=== PATIENT | female | born 1945 | race African-American/Black ===

== ENCOUNTER 2024-10-05 22:22 | Inpatient (IN) | payer MEDICARE, BC ==
[~2024-10-05] VITALS: Ht 165.1 cm; Wt 77.1 kg
[~2024-10-05 22:22] MED LIST: AMLO10TA80 PO; BUPR-113 PO; LEVVL SQ; OLME40TA18 PO
[2024-10-05 22:30] VITALS: BP 131/71; PULSE 85; RESP 18; TEMP 37.11408; TEMP 37.1408; O2SAT 97
[2024-10-06] MEDS ORDERED: KETOROLAC 15MG/ML VIAL IV PRN (00:15)
[2024-10-06] MEDS ORDERED: ONDANSETRON HCL 4MG/2ML INJ IV PRN (00:15)
[2024-10-06] MEDS ORDERED: DIPHENHYDRAMINE 50MG/ML VIAL IV PRN (00:15)
[2024-10-06] MEDS ORDERED: DEXTROSE 50% WATER 50ML SYRINGE IV PRN (00:15)
[2024-10-06] MEDS ORDERED: NALOXONE HCL 0.4MG/ML 1ML VIAL IV PRN (00:15)
[2024-10-06] MEDS ORDERED: CLONIDINE 0.1MG TABLET PO PRN (00:15)
[2024-10-06] MEDS ORDERED: HYDROCODONE/ACETAMINOPHEN 5/325MG TABLET PO PRN (00:15)
[2024-10-06] MEDS: BLOOD SUGAR DIAGNOSTIC STRIP TEST SCH (05:32)
[2024-10-06] MEDS: SODIUM CHLORIDE 0.9% 3ML FLUSH IVF SCH (06:06)
[2024-10-06 08:00] VITALS: BP 122/61; PULSE 90; RESP 19; TEMP 36.61404; O2SAT 97
[2024-10-06 08:15] LABS: CHLORIDE 105 mEq/L (98-107); POTASSIUM 3.9 mEq/L (3.5-5.1); SODIUM 136 mEq/L (136-145)
[2024-10-06 08:20] LABS: CALCIUM 8.5 mg/dL (8.7-10.4); CARBON DIOXIDE 21 mEq/L (21-32)
[2024-10-06 08:25] LABS: CREATININE 0.8 mg/dL (0.6-1.0); GLUCOSE 128 mg/dL (70-105); UREA NITROGEN BLOOD 11 mg/dL (9-23)
[2024-10-06 08:26] LABS: ALANINE AMINOTRANSFERASE < 7 IU/L (10-49); ALBUMIN 3.3 g/dL (3.2-4.8); ASPARTATE AMINOTRANSFERASE 13 IU/L (<34)
[2024-10-06 08:27] LABS: BILIRUBIN TOTAL 0.6 mg/dL (0.1-1.0); PREALBUMIN 5.3 mg/dl (10.0-40.0); PROTEIN TOTAL 6.6 g/dL (6.0-8.3)
[2024-10-06 08:32] LABS: BASOPHILS % 1.4 % (0.0-2.0); EOSINOPHILS % 1.6 % (0.0-5.0); HEMATOCRIT. 32.5 % (36.0-48.0); HEMOGLOBIN. 11.3 g/dL (12.0-16.0); LYMPHOCYTES % 25.3 % (20.0-50.0); MEAN CORPUSCULAR HEMOGLOBIN 30.4 pg (28.0-32.0); MEAN CORPUSCULAR HGB CONC 34.7 g/dL (31.0-37.0); MEAN CORPUSCULAR VOLUME 87.6 fL (81.0-99.0); MEAN PLATELET VOLUME 8.6 fl (7.4-10.4); MONOCYTES % 10.6 % (2.0-8.0); NEUTROPHILS % 61.1 % (40.0-76.0); PLATELET 245 x1000/uL (130-400); RED BLOOD CELL COUNT 3.71 mill/uL (4.2-5.4); RED CELL DISTRIBUTION WIDTH 13.4 % (11.6-14.6); WHITE BLOOD COUNT 6.3 x1000/uL (4.5-11.0)
[2024-10-06] MEDS: LOSARTAN 50 MG TABLET PO SCH (08:59)
[2024-10-06] MEDS: ACETAMINOPHEN 325MG TABLET PO PRN (09:00)
[2024-10-06] MEDS: ASPIRIN 81MG EC TABLET PO SCH (09:00)
[2024-10-06] MEDS: INSULIN LISPRO 100 UNITS/ML SUBCUT SCH (09:00)
[2024-10-06 12:00] VITALS: BP 122/61; PULSE 90; RESP 19; TEMP 36.61404; O2SAT 97
[2024-10-06 20:00] VITALS: BP 125/63; PULSE 85; RESP 19; TEMP 37.00296; O2SAT 98
[2024-10-06] MEDS: AMLODIPINE 10MG TABLET PO SCH (21:11)
[2024-10-06] MEDS: INSULIN GLARGINE 100 UNITS/ML SUBCUT SCH (21:17)
[2024-10-07 08:00] VITALS: BP 122/56; PULSE 73; RESP 18; TEMP 35.72508; O2SAT 98
[2024-10-07] MEDS: CELECOXIB 100MG CAPSULE PO SCH (08:39)
[2024-10-07 20:00] VITALS: BP 124/62; PULSE 82; RESP 19; TEMP 36.05844; O2SAT 98
[2024-10-07] MEDS: ZOLPIDEM TARTRATE 5MG TABLET PO PRN (21:07)
[2024-10-07] MEDS: ZOLPIDEM TARTRATE 5MG TABLET PO NR (22:15)
[2024-10-08 08:00] VITALS: BP 113/57; PULSE 84; RESP 18; TEMP 36.22512; O2SAT 97
[2024-10-08 12:00] VITALS: BP 123/60; PULSE 83; RESP 18; TEMP 36.3918; O2SAT 97
[2024-10-08 20:00] VITALS: BP 133/48; PULSE 80; RESP 18; TEMP 37.11408; O2SAT 100
[2024-10-08 20:41] VITALS: BP 138/67; PULSE 78
[2024-10-08] MEDS ORDERED: MAGNESIUM/ALUMINUM HYDROXIDE/SIMETHICONE 30ML UDC PO PRN (21:15)
[2024-10-08] MEDS: ZOLPIDEM TARTRATE 5MG TABLET PO PRN (21:53)
[2024-10-08] MEDS: PANTOPRAZOLE 40MG DR TABLET PO SCH (21:53)
[2024-10-09 08:00] VITALS: BP 107/53; PULSE 70; RESP 18; TEMP 36.22512; O2SAT 96
[2024-10-09 19:53] VITALS: BP 135/65; PULSE 84; RESP 19; TEMP 36.16956; O2SAT 99
[2024-10-10 08:00] VITALS: BP 139/82; PULSE 84; RESP 15; TEMP 36.83628; O2SAT 99
[2024-10-10] MEDS: FAMOTIDINE 20MG TABLET PO SCH (08:52)
[2024-10-10 19:40] VITALS: BP 124/62; PULSE 78; RESP 19; TEMP 36.16956; O2SAT 98
[2024-10-11 08:00] VITALS: BP 118/63; PULSE 82; RESP 18; TEMP 35.8362; O2SAT 98
[2024-10-11 20:00] VITALS: BP 133/64; PULSE 79; RESP 19; TEMP 36.50292; O2SAT 97
[2024-10-12 08:00] VITALS: BP 133/62; PULSE 87; RESP 18; TEMP 35.61396; O2SAT 98
[2024-10-12 20:00] VITALS: BP 121/68; PULSE 94; RESP 18; TEMP 36.78072; O2SAT 96
[2024-10-13 08:00] VITALS: BP 112/50; PULSE 76; RESP 20; TEMP 36.114; O2SAT 100
[2024-10-13 20:00] VITALS: BP 126/69; PULSE 98; RESP 18; TEMP 36.3918; O2SAT 98
[2024-10-13] MEDS: ZOLPIDEM TARTRATE 5MG TABLET PO PRN (22:19)
[2024-10-14 08:00] VITALS: BP 121/67; PULSE 93; RESP 18; TEMP 36.114; O2SAT 99
[2024-10-14 20:00] VITALS: BP 131/72; PULSE 85; RESP 18; TEMP 36.83628; O2SAT 98
[2024-10-15 08:00] VITALS: BP 107/44; PULSE 70; RESP 18; TEMP 36.114; TEMP 36.11400; O2SAT 98
[2024-10-15 11:58] VITALS: BP 107/57; PULSE 70; TEMP 97; O2SAT 98
[2024-10-15] MEDS ORDERED: LOSA50TA41 PO (13:17)
== END 2024-10-15 14:00 | disposition home health service (06) | DRG 64 ==
PROVIDERS: ADMIT Psychiatry & Neurology Neurology; ATTEND Internal Medicine
DX: I63.9 Cerebral infarction, unspecified (principal); I21.4 Non-ST elevation (NSTEMI) myocardial infarction; K92.2 Gastrointestinal hemorrhage, unspecified; F01.53 Vascular dementia, unspecified severity, with mood disturbance; F33.1 Major depressive disorder, recurrent, moderate; E11.9 Type 2 diabetes mellitus without complications; R47.01 Aphasia; E78.5 Hyperlipidemia, unspecified; I10 Essential (primary) hypertension; R26.9 Unspecified abnormalities of gait and mobility; R56.9 Unspecified convulsions; I48.0 Paroxysmal atrial fibrillation; H53.2 Diplopia; R53.1 Weakness; Z79.899 Other long term (current) drug therapy; Z88.0 Allergy status to penicillin; Z91.81 History of falling
CPT/HCPCS: 36415; 80053; 82962; 83036; 84134; 85025; 92523; 92610; 97110; 97112; 97116; 97162; 97166; 97530; 97535; J1815

== ENCOUNTER 2024-11-02 05:56 | Inpatient (IN) | payer MEDICARE, BC ==
[~2024-11-02] VITALS: Ht 162.6 cm; Wt 69.9 kg
[~2024-11-02 05:56] MED LIST changes: +LOSA50TA41 PO
[2024-11-02 07:23] LABS: CHLORIDE 105 mEq/L (98-107); POTASSIUM 3.9 mEq/L (3.5-5.1); SODIUM 135 mEq/L (136-145)
[2024-11-02 07:24] LABS: CALCIUM 8.5 mg/dL (8.7-10.4); CARBON DIOXIDE 23 mEq/L (21-32)
[2024-11-02 07:29] LABS: CREATININE 0.7 mg/dL (0.6-1.0); GLUCOSE 155 mg/dL (70-105); UREA NITROGEN BLOOD 8 mg/dL (9-23)
[2024-11-02 07:44] LABS: TROPONIN I HIGH SENSITIVITY 352 ng/L (3.0-34)
[2024-11-02 07:58] LABS: BASOPHILS % 0.6 % (0.0-2.0); EOSINOPHILS % 0.6 % (0.0-5.0); HEMATOCRIT. 31.5 % (36.0-48.0); HEMOGLOBIN. 10.5 g/dL (12.0-16.0); LYMPHOCYTES % 20.1 % (20.0-50.0); MEAN CORPUSCULAR HEMOGLOBIN 29.7 pg (28.0-32.0); MEAN CORPUSCULAR HGB CONC 33.4 g/dL (31.0-37.0); MEAN CORPUSCULAR VOLUME 88.9 fL (81.0-99.0); MEAN PLATELET VOLUME 8.3 fl (7.4-10.4); MONOCYTES % 14.3 % (2.0-8.0); NEUTROPHILS % 64.4 % (40.0-76.0); PLATELET 230 x1000/uL (130-400); RED BLOOD CELL COUNT 3.54 mill/uL (4.2-5.4); RED CELL DISTRIBUTION WIDTH 13.9 % (11.6-14.6); WHITE BLOOD COUNT 5.9 x1000/uL (4.5-11.0)
[2024-11-02] MEDS: ONDANSETRON HCL 4MG/2ML INJ IV NR (14:44)
[2024-11-02 17:00] LABS: CLARITY URINE CLEAR (CLEAR); COLOR URINE YELLOW (YELLOW); GLUCOSE URINE NEGATIVE (NEGATIVE); KETONES URINE 1+ (NEGATIVE); LEUKOCYTE ESTERASE URINE TRACE (NEGATIVE); NITRITE URINE NEGATIVE (NEGATIVE); OCCULT BLOOD URINE NEGATIVE (NEGATIVE); PROTEIN URINE 2+ (NEGATIVE); SPECIFIC GRAVITY URINE 1.014 (1.005-1.030)
[2024-11-02 17:21] LABS: BACTERIA URINE 1+; RBC URINE 0-2 /hpf (0-2); SQUAMOUS EPITHELIAL CELL URINE FEW /lpf (RARE/1+); WBC URINE 0-2 /hpf (0-2)
[2024-11-02] MEDS ORDERED: NA PHOS,M-B/NA PHOS,DI-BA ENEMA 118ML PR PRN (19:15)
[2024-11-02] MEDS ORDERED: IPRATROPIUM/ALBUTEROL 0.5-3(2.5)MG/3ML NEB HHN PRN (19:15)
[2024-11-02] MEDS ORDERED: HYDROCODONE/ACETAMINOPHEN 5/325MG TABLET PO PRN (19:15)
[2024-11-02] MEDS ORDERED: DEXTROSE 50% WATER 50ML SYRINGE IV PRN (19:15)
[2024-11-02] MEDS ORDERED: MAGNESIUM/ALUMINUM HYDROXIDE/SIMETHICONE 30ML UDC PO PRN (19:15)
[2024-11-02] MEDS ORDERED: ACETAMINOPHEN 325MG TABLET PO PRN (19:15)
[2024-11-02] MEDS ORDERED: GUAIFENESIN 200MG/10ML SUGAR FREE UDC PO PRN (19:15)
[2024-11-02] MEDS ORDERED: DOCUSATE SODIUM 100MG CAPSULE PO PRN (19:15)
[2024-11-02] MEDS: INSULIN LISPRO 100 UNITS/ML SUBCUT SCH ×2 (19:30→20:11)
[2024-11-02] MEDS ORDERED: NALOXONE HCL 0.4MG/ML VIAL IV PRN (19:30)
[2024-11-02 20:00] VITALS: BP 155/88; PULSE 89; RESP 16; TEMP 37; O2SAT 98
[2024-11-02] MEDS: BLOOD SUGAR DIAGNOSTIC STRIP TEST SCH (20:10)
[2024-11-02] MEDS: ASPIRIN 325MG EC TABLET PO NR (20:44)
[2024-11-02] MEDS: METOPROLOL TARTRATE 25MG TABLET PO SCH (20:44)
[2024-11-02] MEDS: ENOXAPARIN 40MG/0.4ML SYR SUBCUT SCH (20:45)
[2024-11-02] MEDS: DIPHENHYDRAMINE 50MG/ML VIAL IV PRN (20:46)
[2024-11-02] MEDS: INSULIN GLARGINE 100 UNITS/ML SUBCUT SCH (21:36)
[2024-11-02 21:55] VITALS: BP 155/88; PULSE 74; RESP 16; TEMP 36.5
[2024-11-03] VITALS (7 sets, daily range): BP systolic 107–176; BP diastolic 53–91; PULSE 72–89; RESP 16–18; TEMP 36.2–37; O2SAT 97–99
[2024-11-03 01:11] LABS: IRON 37 ug/dL (50-170)
[2024-11-03 01:14] LABS: TOTAL IRON BINDING CAPACITY 200 ug/dl (250-425)
[2024-11-03 01:21] LABS: FOLIC ACID (FOLATE) SERUM 18.88 ng/mL (>5.38); VITAMIN B12 SERUM 763 pg/mL (211-911)
[2024-11-03 01:37] LABS: TROPONIN I HIGH SENSITIVITY 428 ng/L (3.0-34)
[2024-11-03 06:48] LABS: CHLORIDE 106 mEq/L (98-107); POTASSIUM 3.9 mEq/L (3.5-5.1); SODIUM 138 mEq/L (136-145)
[2024-11-03 06:49] LABS: CALCIUM 8.6 mg/dL (8.7-10.4); CARBON DIOXIDE 24 mEq/L (21-32)
[2024-11-03 06:54] LABS: CREATININE 0.9 mg/dL (0.6-1.0); GLUCOSE 98 mg/dL (70-105); UREA NITROGEN BLOOD 11 mg/dL (9-23)
[2024-11-03 07:13] LABS: HEMATOCRIT. 32.4 % (36.0-48.0); HEMOGLOBIN. 10.9 g/dL (12.0-16.0); MEAN CORPUSCULAR HEMOGLOBIN 29.9 pg (28.0-32.0); MEAN CORPUSCULAR HGB CONC 33.7 g/dL (31.0-37.0); MEAN CORPUSCULAR VOLUME 88.5 fL (81.0-99.0); MEAN PLATELET VOLUME 8.4 fl (7.4-10.4); PLATELET 243 x1000/uL (130-400); RED BLOOD CELL COUNT 3.66 mill/uL (4.2-5.4); RED CELL DISTRIBUTION WIDTH 13.9 % (11.6-14.6); WHITE BLOOD COUNT 6.8 x1000/uL (4.5-11.0)
[2024-11-03 08:17] LABS: DIFFERENTIAL COMMENT 1; TROPONIN I HIGH SENSITIVITY 352 ng/L (3.0-34)
[2024-11-03] MEDS ORDERED: LOSARTAN 50 MG TABLET PO SCH (09:00)
[2024-11-03] MEDS ORDERED: AMLODIPINE 10MG TABLET PO SCH (09:00)
[2024-11-03] MEDS ORDERED: LOSARTAN 100 MG TABLET PO SCH (09:00)
[2024-11-03] MEDS ORDERED: MEDICATION NOT ON FORMULARY EA (Olmesartan Medoxomil 1 TAB) PO SCH (09:00)
[2024-11-03] MEDS: BUPROPION HCL 100MG SR TABLET PO SCH (09:56)
[2024-11-03] MEDS: ASPIRIN 81MG EC TABLET PO SCH (09:56)
[2024-11-03 10:31] LABS: PLATELET ESTIMATE NORMAL
[2024-11-03] MEDS: CLONIDINE 0.1MG TABLET PO PRN (20:05)
[2024-11-03] MEDS: ACETAMINOPHEN 325MG TABLET PO PRN (20:06)
[2024-11-03] MEDS: ONDANSETRON HCL 4MG/2ML INJ IV PRN (22:17)
[2024-11-04] VITALS: BP 121/56; PULSE 66; RESP 17; TEMP 36.3; O2SAT 98
[2024-11-04 04:00] VITALS: BP 118/61; PULSE 71; RESP 16; TEMP 36.4; O2SAT 98
[2024-11-04 08:00] VITALS: BP 140/64; PULSE 65; RESP 19; TEMP 36.4; O2SAT 100
[2024-11-04 12:00] VITALS: BP 135/66; PULSE 75; RESP 20; TEMP 36.4; O2SAT 95
[2024-11-04] MEDS: CLOPIDOGREL 75MG TABLET PO NR (15:45)
[2024-11-04] MEDS ORDERED: CLOP-31 MT (15:47)
[2024-11-04 16:00] VITALS: BP 131/70; PULSE 83; RESP 19; TEMP 37; O2SAT 100
[2024-11-04 18:00] VITALS: BP 124/82; PULSE 84; TEMP 98.4; O2SAT 99
== END 2024-11-04 18:00 | disposition home or self-care (01) | DRG 64 ==
LOC: ER 05:56 → 5WST 10:24 → EDBEDREQ 10:25 → EDBEDREQTM 10:25 → EDBEDREQ 14:59
PROVIDERS: ADMIT Internal Medicine; ATTEND Internal Medicine
DX: I63.9 Cerebral infarction, unspecified (principal); I21.A1 Myocardial infarction type 2; E87.1 Hypo-osmolality and hyponatremia; F03.918 Unspecified dementia, unspecified severity, with other behavioral disturbance; F32.A Depression, unspecified; I10 Essential (primary) hypertension; E11.9 Type 2 diabetes mellitus without complications; Z66 Do not resuscitate; R47.01 Aphasia; I25.10 Atherosclerotic heart disease of native coronary artery without angina pectoris; D50.9 Iron deficiency anemia, unspecified; G47.00 Insomnia, unspecified; I48.0 Paroxysmal atrial fibrillation; E78.5 Hyperlipidemia, unspecified; Z79.4 Long term (current) use of insulin; Z79.82 Long term (current) use of aspirin; Z79.899 Other long term (current) drug therapy; Z82.49 Family history of ischemic heart disease and other diseases of the circulatory system; Z88.0 Allergy status to penicillin
CPT/HCPCS: 36415; 70551; 71045; 80048; 81003; 82607; 82746; 82962; 83540; 83550; 84484; 85025; 93005; 97162; 97166; 97535; 99291; A4606; J1200; J1650; J2405